=== PATIENT | male | born 1985 | race Caucasian/White ===

== ENCOUNTER 2020-01-13 11:08 | Emergency (ER) | payer BC ==
[2020-01-13 11:20] VITALS: BP 133/78
--- NOTE | 2020-01-13 11:36 | UC ---
UC General HPI - HPI Summary HPI Summary: 34 y/o male presents to the urgent care requesting a note to return to work. Pt reports around 12/27/2019 he developed sinus congestion w/ clear nasal discharge and PND and a dry cough and was told by his boss to isolate at home. 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 During this past 2 weeks he hasn't developed any fever or SOB. He denies any fever or SOB or worsening cough this during his quarantine. He states he feels better and his sinus congestion has resolved. Pt denies dizziness, DIETZ, fatigue, body aches, abdominal pain, chest pain, N/V/ d. - History of Current Complaint Chief Complaint: UCGeneralIllness Stated Complaint: WANTS NOTE TO RETURN TO WORK Time Seen by Provider: 01/13/20 11:17 Hx Obtained From: Patient Onset/Duration: Gradual Onset, Lasting Weeks - 18 days ago w/ sinus congestion clear nasal discharge and mild cough, Resolved Timing: Intermittent Episodes Lasting: Onset Severity: Mild Current Severity: None Pain Intensity: 0 Associated Signs & Symptoms: Positive: Cough - mild cough which has now resolved after isolating himself at home for 18 days. Negative: Chest Pain, Diarrhea, Dysuria, Diaphoresis, Fever, Headache, Nausea, Palpitations, Vomiting , Wheezing, Weakness - Allergy/Home Medications Allergies/Adverse Reactions: Allergies Allergy/AdvReac Type Severity Reaction Status Date / Time No Known Allergies Allergy Verified 01/13/20 11:17 Home Medications: Home Medications NK [No Home Medications Reported] 01/13/20 [History Confirmed 01/13/20] PMH/Surg Hx/FS Hx/Imm Hx Previously Healthy: Yes - Pt denies PMHX - Surgical History Surgical History: None - Family History Known Family History: Positive: Diabetes - Social History Occupation: Employed Full-time Lives: With Family Alcohol Use: None Substance Use Type: None Smoking Status (MU): Former Smoker Review of Systems All Other Systems Reviewed And Are Negative: Yes Constitutional: Positive: Negative Skin: Positive: Negative Eyes: Positive: Negative ENT: Positive: Negative Respiratory: Positive: Negative Cardiovascular: Positive: Negative Gastrointestinal: Positive: Negative Genitourinary: Positive: Negative Motor: Positive: Negative Neurovascular: Positive: Negative Musculoskeletal: Positive: Negative Neurological/Mental Status: Positive: Negative Psychological: Positive: Negative Is Patient Immunocompromised?: No Physical Exam - Summary Physical Exam Summary: VITAL SIGNS: Reviewed. GENERAL: Patient is a well developed and nourished obese male who is sitting comfortably in the examining table. Patient is not in any acute respiratory distress. HEAD AND FACE: No signs of trauma. No ecchymosis, hematomas or skull depressions. No sinus tenderness. EYES: PERRLA, EOMI x 2, No injected conjunctiva, no nystagmus. No photophobia. EARS: Hearing grossly intact. Ear canals and tympanic membranes are within normal limits. MOUTH: Positive pharynx with no erythema, no exudates, No B/L tonsillar enlargement , no exudate. Uvula in midline. Nose WNL NECK: Supple, trachea is midline, Positive anterior cervical lymphadenopathy, no JVD, no carotid bruit, no c-spine tenderness, neck with full ROM. CHEST: Symmetric, no tenderness at palpation LUNGS: Clear to auscultation bilaterally. No wheezing or crackles. CVS: Regular rate and rhythm, S1 and S2 present, no murmurs or gallops appreciated. ABDOMEN: Soft, non-tender. No signs of distention. No rebound no guarding, and no masses palpated. Bowel sounds are normal. EXTREMITIES: FROM in all major joints, no edema, no cyanosis or clubbing. NEURO: Alert and oriented x 3. No acute neurological deficits. Pt follows commands. SKIN: Dry and warm. Triage Information Reviewed: Yes Vital Signs: Initial Vital Signs Temp 97.7 F 01/13/20 11:15 Pulse 83 01/13/20 11:15 Resp 18 01/13/20 11:15 BP 133/78 01/13/20 11:15 Pulse Ox 100 01/13/20 11:15 Course/Dx - Course Course Of Treatment: 34 y/o male presents to the urgent care requesting a note to return to work. Pt reports around 12/27/2019 he developed sinus congestion w/ clear nasal discharge and PND and a dry cough and was told by his boss to isolate at home. 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 During this past 2 weeks he hasn't developed any fever or SOB. He denies any fever or SOB or worsening cough this during his quarantine. He states he feels better and his sinus congestion has resolved. Pt denies dizziness, DIETZ, fatigue, body aches, abdominal pain, chest pain, N/V/ d. Hx obtained. Pt is hemodynamically stable, VS: WNL. PE: WNL. Pt is clear to return to work and strongly advised to encourage hand washing, stay away about 6 feet from his corkers and if he develops fever, cough or SOB, to quarantine himself again. D/C instructions explained. PT given letter to return to work. Pt understood and agreed w/ D/C instructions. - Differential Dx - Multi-Symptom Differential Diagnoses: Sepsis, Urinary Tract Infection, Other - URI, sinusitis , COVID, influenza, - Diagnoses Provider Diagnosis: Return to work evaluation Discharge ED - Sign-Out/Discharge Documenting (check all that apply): Patient Departure - D/C home All imaging exams completed and their final reports reviewed: No Studies - Discharge Plan Condition: Stable Disposition: HOME Forms: *Work Release Referrals: [facility] [Outside] - If Needed Additional Instructions: 1- You are cleared to return to work since you are now asymptomatic and you have isolated yourself for more than 2 weeks. However please encourage hand washing, wear a mask if possible or stay away from people about 6 feet. Increase hydration , eat well and take Vitamin C to boost your Immune system. . 2- However if you develop fever, cough or SOB you need to isolate yourself again - Billing Disposition and Condition Condition: STABLE Disposition: Home
== END 2020-01-13 11:50 | disposition home or self-care (01) ==
LOC: UCEAST 11:08
DX: Z00.00 Encounter for general adult medical examination without abnormal findings (principal); Z87.891 Personal history of nicotine dependence
CPT/HCPCS: 99201; G0463